=== PATIENT | female | born 1990 | race Caucasian/White ===

== ENCOUNTER 2020-12-16 01:08 | Emergency (ER) | payer MEDICAID ==
[~2020-12-16] VITALS: Ht 162.6 cm; Wt 49.9 kg
[2020-12-16 01:35] LABS: *BILIRUBIN,URIN 3+ (NEGATIVE); *BLOOD, URINE NEGATIVE (NEGATIVE); *CLARITY,URINE SLIGHTLY CLOUDY (CLEAR); *COLOR,URINE AMBER (YELLOW); *KETONES,URINE 2+ (NEGATIVE); *UROBILINOGEN,URINE >=8.0 E.U./dl (NORMAL); LEUKOCYTE ESTERASE ,URINE 3+ (NEGATIVE); NITRITE, URINE POSITIVE (NEGATIVE); UGLUCOSE 1+ (NEGATIVE)
[2020-12-16 01:38] LABS: *URINE HCG, QUAL NEGATIVE (NEGATIVE)
--- NOTE | 2020-12-16 01:43 | NUR ---
Dr. Leigh performing pelvic exam, chapperoned by Leatha RAMIREZ.
[2020-12-16] MEDS ORDERED: NITROFURANTOIN/NITROFURAN MAC 100 MG CAPSULE PO ONE ×2 (02:00→02:07)
[2020-12-16] MEDS ORDERED: CEFTRIAXONE 1 G VIAL IM ONE (02:00)
[2020-12-16] MEDS ORDERED: PHENAZOPYRIDINE HCL 100 MG TABLET PO ONE (02:00)
[2020-12-16] MEDS ORDERED: CEFTRIAXONE 1 G VIAL ONE (02:07)
[2020-12-16] MEDS ORDERED: PHENAZOPYRIDINE HCL 100 MG TABLET ONE (02:08)
--- NOTE | 2020-12-16 02:20 | NUR ---
Patient discharged to home in stable condition. Written and verbal after care instructions given. Patient verbalizes understanding of instructions. Stressed follow up or return to ER for worsening s/s. Patient out of ER with steady gait, no acute signs of distress, VSS, all belongings taken, provided with copies of lab results.
[2020-12-16 02:21] VITALS: BP 111/62
[2020-12-16 12:25] LABS: BACTERIA,URINE MANY /HPF (NONE SEEN); RBC,URINE 0-3 /HPF (0-3); WBC,URINE TNTC /HPF (0-3)
[2020-12-16 12:26] LABS: SQUAMOUS EPITHELIAL CELL,UR FEW /HPF (NONE SEEN)
== END 2020-12-16 02:21 | disposition home or self-care (01) ==
LOC: ER 01:08
DX: N39.0 Urinary tract infection, site not specified (principal); Z88.6 Allergy status to analgesic agent
CPT/HCPCS: 81001; 84703; 87086; 87210; 96372; 99283; J0696; A4663

== ENCOUNTER 2022-09-27 16:38 | Emergency (ER) | payer MEDICAID ==
[~2022-09-27] VITALS: Ht 165.1 cm; Wt 57.6 kg
--- NOTE | 2022-09-27 17:00 | NUR ---
Pt arrived with c/o coughing. No sob, dyspnea and difficulty breathing noted. Seen by HAYDE for MSE.
[2022-09-27] MEDS ORDERED: BENZ-13 PO (17:15)
--- NOTE | 2022-09-27 17:52 | NUR ---
Patient discharged to home in stable condition. Written and verbal after care instructions given. Patient verbalizes understanding of instructions. Stressed follow up or return to ER for worsening s/s.
[2022-09-27 17:53] VITALS: BP 112/89
[2022-09-27 18:06] LABS: *URINE HCG, QUAL NEGATIVE (NEGATIVE)
== END 2022-09-27 17:54 | disposition home or self-care (01) ==
LOC: ER 16:39
DX: J20.9 Acute bronchitis, unspecified (principal)
CPT/HCPCS: 84703; 86403; 87400; A4663

== ENCOUNTER 2023-09-11 17:23 | Emergency (ER) | payer MEDICAID ==
[~2023-09-11] VITALS: Ht 165.1 cm; Wt 56.7 kg
[~2023-09-11 17:23] MED LIST: BENZ-13 PO; D-ME473S47 PO
[2023-09-11] MEDS ORDERED: ACETAMINOPHEN ES 500 MG TABLET PO ONE (18:45)
[2023-09-11] MEDS ORDERED: ACETAMINOPHEN ES 500 MG TABLET ONE (18:49)
[2023-09-11 20:26] VITALS: BP 128/70; O2SAT 99
== END 2023-09-11 20:26 | disposition home or self-care (01) ==
LOC: ER 17:23
DX: S20.01XA Contusion of right breast, initial encounter (principal); Z88.8 Allergy status to other drugs, medicaments and biological substances; Z79.899 Other long term (current) drug therapy; V43.52XA Car driver injured in collision with other type car in traffic accident, initial encounter; Y93.89 Activity, other specified; Y92.410 Unspecified street and highway as the place of occurrence of the external cause; Y99.8 Other external cause status
CPT/HCPCS: 76642; A4606; A4663; A9150

== ENCOUNTER 2024-01-15 16:30 | Emergency (ER) | payer MEDICAID ==
[~2024-01-15] VITALS: Ht 165.1 cm; Wt 58.1 kg
[~2024-01-15 16:30] MED LIST changes: +SILV50CR32 TP
[2024-01-15] MEDS ORDERED: OXYB5TAB16 PO ×2 (17:35→18:12)
[2024-01-15] MEDS ORDERED: predniSONE 50 MG TABLET ONE (18:11)
[2024-01-15] MEDS ORDERED: MUPI22OI2 TP (18:12)
[2024-01-15] MEDS ORDERED: PRED50TA PO (18:12)
[2024-01-15] MEDS: predniSONE 50 MG TABLET PO ONE (18:13)
[2024-01-15 18:15] VITALS: BP 107/52; O2SAT 99
== END 2024-01-15 18:15 | disposition home or self-care (01) ==
LOC: ER 16:32
DX: J00 Acute nasopharyngitis [common cold] (principal); R35.1 Nocturia; J40 Bronchitis, not specified as acute or chronic; Z98.890 Other specified postprocedural states; Z79.899 Other long term (current) drug therapy; Z60.2 Problems related to living alone; Z88.1 Allergy status to other antibiotic agents
CPT/HCPCS: 99283; J7512; A4606; A4663

== ENCOUNTER 2024-08-05 12:14 | Emergency (ER) | payer MEDICAID ==
[~2024-08-05] VITALS: Ht 165.1 cm; Wt 59.0 kg
[~2024-08-05 12:14] MED LIST changes: +MUPI22OI2 TP; +OXYB5TAB16 PO; +PRED50TA PO
[2024-08-05] MEDS: predniSONE 50 MG TABLET PO ONE (13:45)
[2024-08-05] MEDS ORDERED: predniSONE 50 MG TABLET ONE (14:36)
[2024-08-05] MEDS ORDERED: CEphaleXIN 500 MG CAPSULE ONE (14:37)
[2024-08-05] MEDS: CEphaleXIN 500 MG CAPSULE PO ONE (14:38)
[2024-08-05] MEDS ORDERED: CEPH500C2 PO (14:56)
[2024-08-05] MEDS ORDERED: predniSONE 20 MG TABLET ONE (15:02)
[2024-08-05] MEDS: predniSONE 20 MG TABLET PO ONE (15:07)
[2024-08-05 15:48] VITALS: BP 128/71; TEMP 98.3; O2SAT 98
== END 2024-08-05 15:48 | disposition home or self-care (01) ==
LOC: ER 12:14
DX: L04.0 Acute lymphadenitis of face, head and neck (principal); Z79.891 Long term (current) use of opiate analgesic; Z98.890 Other specified postprocedural states; Z79.899 Other long term (current) drug therapy; Z20.822 Contact with and (suspected) exposure to COVID-19; Z60.2 Problems related to living alone; Z88.5 Allergy status to narcotic agent
CPT/HCPCS: 99283; 87426; 87804 ×2; 86403; 87070; J7512 ×2; A4606; A4663

== ENCOUNTER 2024-09-22 17:50 | Emergency (ER) | payer MEDICAID ==
[~2024-09-22] VITALS: Ht 165.1 cm; Wt 59.0 kg
[~2024-09-22 17:50] MED LIST changes: +CEPH500C2 PO
[2024-09-22 18:28] LABS: BASOPHILS % (AUTO) 0.1 % (0.0-2.0); EOSINOPHILS # (AUTO) 0.1 K/uL (0.0-0.7); EOSINOPHILS % (AUTO) 1.5 % (0.0-7.0); HEMATOCRIT 35.1 % (31.2-41.9); HEMOGLOBIN 11.7 g/dL (10.9-14.3); LYMPHOCYTES # (AUTO) 1.9 K/uL (0.8-4.8); LYMPHOCYTES % (AUTO) 32.4 % (20.5-51.5); MEAN CORPUSCULAR HEMOGLOBIN 29.4 uug (24.7-32.8); MEAN CORPUSCULAR HGB CONC 34 g/dL (32.3-35.6); MEAN CORPUSCULAR VOLUME 87.7 fL (75.5-95.3); MONOCYTES # (AUTO) 0.4 K/uL (0.1-1.30); MONOCYTES % (AUTO) 6.9 % (0.0-11.0); NEUTROPHILS # (AUTO) 3.4 K/uL (1.8-8.9); NEUTROPHILS % (AUTO) 59.1 % (38.5-71.5); PLATELET COUNT (AUTO) 241 K/uL (179-408); RED CELL DISTRIBUTION WIDTH 14.9 % (12.3-17.7); WHITE BLOOD COUNT (AUTO) 5.7 K/uL (3.8-11.8)
[2024-09-22 18:29] LABS: DIFFERENTIAL COMMENT 1
[2024-09-22 18:34] LABS: CALCIUM 8.7 mg/dL (8.5-10.1); CREATININE 0.6 mg/dL (0.6-1.3); POTASSIUM 3.9 mmol/L (3.5-5.1)
[2024-09-22 18:42] LABS: *BILIRUBIN,URIN NEGATIVE (NEGATIVE); *BLOOD, URINE NEGATIVE (NEGATIVE); *CLARITY,URINE CLEAR (CLEAR); *COLOR,URINE YELLOW (YELLOW); *KETONES,URINE NEGATIVE (NEGATIVE); *PROTEIN,URINE NEGATIVE (NEGATIVE); *UROBILINOGEN,URINE 0.2 E.U./dl (NORMAL); LEUKOCYTE ESTERASE ,URINE NEGATIVE (NEGATIVE); NITRITE, URINE NEGATIVE (NEGATIVE); UGLUCOSE NEGATIVE (NEGATIVE)
[2024-09-22 19:10] VITALS: BP 111/68; O2SAT 98
== END 2024-09-22 19:10 | disposition home or self-care (01) ==
LOC: ER 17:50
DX: R68.83 Chills (without fever) (principal); Z79.52 Long term (current) use of systemic steroids; Z60.2 Problems related to living alone; Z88.7 Allergy status to serum and vaccine; Z88.5 Allergy status to narcotic agent
CPT/HCPCS: 36415; 85025; A4606; A4663

== ENCOUNTER 2025-01-20 07:26 | Emergency (ER) | payer MEDICAID ==
[~2025-01-20] VITALS: Ht 165.1 cm; Wt 59.0 kg
[2025-01-20] MEDS ORDERED: LIDOCAINE VISCUS 2% 15 ML UDC ONE (08:18)
[2025-01-20] MEDS: LIDOCAINE VISCUS 2% 15 ML UDC MM ONE (08:23)
[2025-01-20] MEDS ORDERED: ACETAMINOPHEN 650 MG/20.3 ML LIQUID UDC ONE (09:35)
[2025-01-20] MEDS ORDERED: IBUPROFEN 100 MG/5 ML LIQUID UDC ONE (09:35)
[2025-01-20] MEDS ORDERED: AZIT250T PO (09:38)
[2025-01-20] MEDS ORDERED: IBUP-1955 PO (09:38)
[2025-01-20] MEDS: IBUPROFEN 100 MG/5 ML LIQUID UDC PO ONE (09:39)
[2025-01-20] MEDS: ACETAMINOPHEN 650 MG/20.3 ML LIQUID UDC PO ONE (09:40)
[2025-01-20 09:49] VITALS: BP 107/68; O2SAT 98
== END 2025-01-20 09:49 | disposition home or self-care (01) ==
LOC: ER 07:26
DX: J02.9 Acute pharyngitis, unspecified (principal); Z79.52 Long term (current) use of systemic steroids; Z60.2 Problems related to living alone; Z88.5 Allergy status to narcotic agent; Z88.7 Allergy status to serum and vaccine
CPT/HCPCS: 86403; 87070; A4606; A4663

== ENCOUNTER 2025-03-11 08:18 | Emergency (ER) | payer MEDICAID ==
[~2025-03-11] VITALS: Ht 165.1 cm; Wt 59.0 kg
[~2025-03-11 08:18] MED LIST changes: +AZIT250T PO; +IBUP-1955 PO
[2025-03-11 09:09] LABS: *BILIRUBIN,URIN NEGATIVE (NEGATIVE); *CLARITY,URINE CLEAR (CLEAR); *COLOR,URINE YELLOW (YELLOW); *KETONES,URINE NEGATIVE (NEGATIVE); *PROTEIN,URINE NEGATIVE (NEGATIVE); *UROBILINOGEN,URINE 0.2 E.U./dl (NORMAL); LEUKOCYTE ESTERASE ,URINE NEGATIVE (NEGATIVE); NITRITE, URINE NEGATIVE (NEGATIVE); PH,URINE 5.5 (5.0-8.0); UGLUCOSE NEGATIVE (NEGATIVE)
[2025-03-11 09:10] LABS: *BLOOD, URINE TRACE (NEGATIVE)
[2025-03-11 09:16] LABS: *URINE HCG, QUAL NEGATIVE (NEGATIVE); BACTERIA,URINE FEW /HPF (NONE SEEN); RBC,URINE 0-3 /HPF (0-3); SQUAMOUS EPITHELIAL CELL,UR FEW /HPF (NONE SEEN); WBC,URINE 0-3 /HPF (0-3)
[2025-03-11] MEDS ORDERED: ACETAMINOPHEN 500 MG TABLET ONE (09:43)
[2025-03-11] MEDS: ACETAMINOPHEN 500 MG TABLET PO ONE ×2 (09:48)
[2025-03-11 10:49] VITALS: BP 112/70; O2SAT 99
[2025-03-13 22:09] LABS: *CHLAMYDIA NAA Negative (Negative); *GC NAA Negative (Negative); *TRIC.VAG. NAA Negative (Negative)
== END 2025-03-11 10:49 | disposition home or self-care (01) ==
LOC: ER 08:24
DX: N36.2 Urethral caruncle (principal); R10.2 Pelvic and perineal pain; Z79.52 Long term (current) use of systemic steroids; Z88.5 Allergy status to narcotic agent; Z88.7 Allergy status to serum and vaccine; Z60.2 Problems related to living alone
CPT/HCPCS: 84703; 87086; 87491; A4606; A4663; A9150

== ENCOUNTER 2025-03-25 08:54 | Emergency (ER) | payer MEDICAID ==
[~2025-03-25] VITALS: Ht 165.1 cm; Wt 59.0 kg
[2025-03-25] MEDS ORDERED: AMOXICILLIN-CLAVUL 875-125MG TABLET ONE (09:37)
[2025-03-25] MEDS ORDERED: predniSONE 50 MG TABLET ONE (09:37)
[2025-03-25] MEDS: AMOXICILLIN-CLAVUL 875-125MG TABLET PO ONE (09:41)
[2025-03-25] MEDS: predniSONE 50 MG TABLET PO ONE (09:41)
[2025-03-25] MEDS ORDERED: predniSONE 10 MG TABLET ONE (09:48)
[2025-03-25] MEDS: predniSONE 10 MG TABLET PO ONE (09:50)
[2025-03-25] MEDS ORDERED: PRED-429 PO (10:03)
[2025-03-25] MEDS ORDERED: AMOX-430 PO (10:03)
[2025-03-25 10:19] VITALS: BP 106/53; TEMP 97.9; O2SAT 98
== END 2025-03-25 10:19 | disposition home or self-care (01) ==
LOC: ER 08:59
DX: J01.90 Acute sinusitis, unspecified (principal); Z79.52 Long term (current) use of systemic steroids; Z88.5 Allergy status to narcotic agent; Z88.7 Allergy status to serum and vaccine; Z87.09 Personal history of other diseases of the respiratory system; Z60.2 Problems related to living alone
CPT/HCPCS: 99284; 70450; 71045; J7512; A4606; A4663

== ENCOUNTER 2025-04-27 12:14 | Emergency (ER) | payer MEDICAID ==
[~2025-04-27] VITALS: Ht 165.1 cm; Wt 59.0 kg
[~2025-04-27 12:14] MED LIST changes: +AMOX-430 PO; +PRED-429 PO
[2025-04-27] MEDS ORDERED: FAMOTIDINE 20 MG TABLET ONE (12:51)
[2025-04-27] MEDS ORDERED: DIPHENOXYLATE HCL/ATROP SULF TABLET ONE (12:51)
[2025-04-27] MEDS ORDERED: METOCLOPRAMIDE HCL 10 MG TABLET ONE (12:51)
[2025-04-27] MEDS: DIPHENOXYLATE HCL/ATROP SULF TABLET PO ONE (12:56)
[2025-04-27] MEDS: METOCLOPRAMIDE HCL 10 MG TABLET PO ONE (12:56)
[2025-04-27] MEDS: FAMOTIDINE 20 MG TABLET PO ONE (12:56)
[2025-04-27] MEDS ORDERED: FAMO40TA7 PO (13:13)
[2025-04-27] MEDS ORDERED: METO-295 PO (13:13)
[2025-04-27] MEDS ORDERED: DIPH1TAB PO (13:13)
[2025-04-27 13:38] VITALS: BP 110/70; TEMP 98; O2SAT 98
== END 2025-04-27 13:39 | disposition home or self-care (01) ==
LOC: ER 12:14
DX: R11.2 Nausea with vomiting, unspecified (principal); R19.7 Diarrhea, unspecified; Z79.52 Long term (current) use of systemic steroids; Z88.5 Allergy status to narcotic agent; Z88.7 Allergy status to serum and vaccine; Z87.09 Personal history of other diseases of the respiratory system
CPT/HCPCS: A4606; A4663; J8597